=== PATIENT | male | born 1975 | race Caucasian/White ===

== ENCOUNTER 2024-04-14 21:59 | Emergency (ER) | payer BC | END 2024-04-14 22:38 | disposition left against medical advice (07) | LOC: JD.ED 21:59 | DX: Z53.21 Procedure and treatment not carried out due to patient leaving prior to being seen by health care provider (principal) ==

== ENCOUNTER 2024-05-01 13:48 | Emergency (ER) | payer BC, OTHER ==
[2024-05-01 14:38] LABS: BASOPHILS PERCENT AUTO 0.4 % (0.0-1.0); EOSINOPHILS ABSOLUTE AUTO 0.1 K/mm3 (0.0-0.4); EOSINOPHILS PERCENT AUTO 1.4 % (0.0-6.0); HEMATOCRIT 46.8 % (42.0-52.0); HEMOGLOBIN 16.4 gm/dl (14.0-18.0); IMMATURE GRAN ABSOLUTE AUTO 0.01 K/mm3 (0.00-0.05); IMMATURE GRAN PERCENT AUTO 0.1 % (0.0-0.4); LYMPHOCYTES ABSOLUTE AUTO 1.6 K/mm3 (1.0-4.8); LYMPHOCYTES PERCENT AUTO 19.9 % (24.0-44.0); MEAN CORPUSCULAR HEMOGLOBIN 30.4 pg (28.0-32.0); MEAN CORPUSCULAR VOLUME 86.8 fl (83.0-99.0); MONOCYTES ABSOLUTE AUTO 0.7 K/mm3 (0.0-0.8); MONOCYTES PERCENT AUTO 8.8 % (0.0-8.0); NEUTROPHILS ABSOLUTE AUTO 5.6 K/mm3 (1.8-7.7); NEUTROPHILS PERCENT AUTO 69.4 % (41.0-71.0); PLATELET COUNT,PLT 238 K/mm3 (150-400); RED BLOOD CELL COUNT 5.39 M/mm3 (4.52-5.90); WHITE BLOOD CELL COUNT,WBC 8.05 K/mm3 (3.9-11.3)
[2024-05-01 15:19] LABS: A/G RATIO 1.1 (1-2); ALANINE AMINOTRANSFERASE,ALT 27 U/L (16-63); ALKALINE PHOSPHATASE 83 U/L (46-116); ANION GAP 15.6 (5-15); ASPARTATE AMNIOTRANSFERASE,AST 19 U/L (15-37); BILIRUBIN TOTAL 0.9 mg/dL (0.2-1.0); BLOOD UREA NITROGEN,BUN 9 mg/dL (7-18); BUN/CREATININE RATIO 7.5 (14-18); CALCIUM 9.4 mg/dL (8.5-10.1); CARBON DIOXIDE,CO2 22 mEq/L (21-32); CHLORIDE,CL 102 mEq/L (98-107); CREATININE 1.2 mg/dL (0.7-1.3); ESTIMATED GFR 75 mL/min (>60); GLUCOSE RANDOM 240 mg/dL (70-99); POTASSIUM,K 3.6 mEq/L (3.5-5.1); PROTEIN TOTAL,TP 7.5 g/dl (6.4-8.2); SODIUM,NA 136 mEq/L (136-145); TSH 1.387 uIU/mL (0.358-3.74)
[2024-05-01 15:20] LABS: ACETAMINOPHEN 0 ug/mL (10-30)
[2024-05-01 17:00] LABS: BARBITURATE SCREEN,URINE NEGATIVE (CUTOFF=200); BENZODIAZEPINES SCREEN,URINE NEGATIVE (CUTOFF=150); BUPRENORPHINE SCREEN,URINE NEGATIVE (CUTOFF=10); METHADONE SCREEN, URINE NEGATIVE (CUT0FF=200); METHAMPHETAMINES SCREEN, URINE NEGATIVE (CUTOFF=500); OXYCODONE SCREEN,URINE NEGATIVE (CUT0FF=100); THC SCREEN,URINE 20 NG/ML PRESUMPTIVE POSITIVE (CUTOFF=50)
[2024-05-01 17:02] LABS: AMPHETAMINES SCREEN, URINE NEGATIVE (CUTOFF=500)
== END 2024-05-01 19:19 ==
LOC: JD.ED 13:48
DX: R45.851 Suicidal ideations (principal)
CPT/HCPCS: 36415; 80053; 80143; 80179; 80306; 80307; 84443; 85025; 93005; 93010; 99285